=== PATIENT | female | born 1995 ===

== ENCOUNTER 2019-06-24 01:30 | Emergency (ER) | payer SELFPAY ==
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
[2019-06-24 02:21] LABS: ANION GAP 17.4 mEq/L (7-13); CHLORIDE,CL 103 mmol/L (98-107); SODIUM,NA 141 mmol/L (136-145)
[2019-06-24 02:22] LABS: ACETAMINOPHEN 0 ug/mL (10-30 (Therapeutic))
== END 2019-06-24 03:17 ==
LOC: DL.ED 01:30 → EDBD 01:30 → DL.ED 03:17
DX: F10.10 Alcohol abuse, uncomplicated (principal); Y90.4 Blood alcohol level of 80-99 mg/100 ml; F19.10 Other psychoactive substance abuse, uncomplicated
CPT/HCPCS: 36415; 70450; 72125; 80053; 80307; 84703; 85025; 99282; 99284-25